=== PATIENT | male | born 1990 | race Caucasian/White ===

== ENCOUNTER → 2020-08-12 11:15 | Outpatient (CLI) | payer BC, SELFPAY ==
--- NOTE | 2020-08-12 11:22 | XR_ITS ---
PROCEDURE: XR ANKLE LT MIN 3V CLINICAL INDICATION: ACUTE LT ANKLE PAIN COMPARISON: No exams were available for comparison FINDINGS: Sclerosis is present in the mid aspect the talus consistent with a bone island. No fracture or dislocation. No lytic changes evident. The mortise is preserved and the talar dome has an unremarkable appearance. IMPRESSION: No acute findings. Dictated by: Tomás Bush MD 08/12/2020 17:20 Tomás Bush MD in [place] 08/12/2020 17:20
== END ==
PROVIDERS: PCP Nurse Practitioner; Visit Provider Nurse Practitioner
DX: M25.572 Pain in left ankle and joints of left foot (principal)
CPT/HCPCS: 73610

== ENCOUNTER → 2020-08-20 10:08 | Outpatient (CLI) | payer BC, SELFPAY ==
[2020-08-20 11:43] LABS: Basophils % 0.3 % (0.1-2.0); Eosinophils # 0.1 K/mm3 (0.0-0.4); Eosinophils % 1.7 % (0.1-12.0); Hematocrit 48.1 % (42.0-52.0); Hemoglobin 16.2 g/dL (14.1-18.0); Lymphocytes # 2.5 K/mm3 (0.7-4.5); Lymphocytes % 34.6 % (10-50); Mean Corpuscular HGB Conc 33.7 g/dL (31.8-35.4); Mean Corpuscular Hemoglobin 30.3 pg (27.0-31.2); Mean Corpuscular Volume 89.9 fl (80-94); Monocytes # 1.1 K/mm3 (0.1-1.0); Monocytes % 15.5 % (1.7-9.3); Neutrophils # 3.4 K/mm3 (1.8-7.8); Neutrophils % 47.9 % (37.0-80.0); Platelet Count 215 K/mm3 (142-424); Red Blood Count 5.36 M/mm3 (4.60-6.20); Red Cell Distribution Width 12.6 % (11.5-17.5); White Blood Count 7.2 K/mm3 (4.8-10.8)
== END ==
PROVIDERS: PCP Family Medicine; Visit Provider Nurse Practitioner
DX: Z03.818 Encounter for observation for suspected exposure to other biological agents ruled out (principal); J06.9 Acute upper respiratory infection, unspecified
CPT/HCPCS: 85025; U0003

== ENCOUNTER → 2021-10-17 12:58 | Outpatient (CLI) | payer BC, SELFPAY ==
[2021-10-17 14:42] LABS: Basophils # 0.1 K/mm3 (0-0.2); Eosinophils # 0.1 K/mm3 (0.0-0.4); Eosinophils % 0.8 % (0.1-12.0); Hematocrit 46.2 % (42.0-52.0); Hemoglobin 14.7 g/dL (14.1-18.0); Lymphocytes # 1.9 K/mm3 (0.7-4.5); Lymphocytes % 29.6 % (10-50); Mean Corpuscular HGB Conc 31.9 g/dL (31.8-35.4); Mean Corpuscular Hemoglobin 29.9 pg (27.0-31.2); Mean Corpuscular Volume 93.8 fl (80-94); Mean Platelet Volume 8.8 fl (7.4-10.4); Monocytes # 1.1 K/mm3 (0.1-1.0); Monocytes % 16.6 % (1.7-9.3); Neutrophils # 3.4 K/mm3 (1.8-7.8); Platelet Count 184 K/mm3 (142-424); Red Blood Count 4.93 M/mm3 (4.60-6.20); Red Cell Distribution Width 12.8 % (11.5-17.5); White Blood Count 6.5 K/mm3 (4.8-10.8)
[2021-10-17 15:03] LABS: Strep Scrn Group A (Rapid) Negative (Negative)
== END ==
PROVIDERS: PCP Family Medicine; Visit Provider Nurse Practitioner
DX: U07.1 COVID-19 (principal)
CPT/HCPCS: 36415; 85025; 87275; 87276; 87430; C9803; U0003; U0005

== ENCOUNTER → 2022-08-10 13:42 | Outpatient (CLI) | payer BC, SELFPAY ==
[2022-08-10 18:26] LABS: Adenovirus,PCR Not Detected (NotDetected); Bordetella Pertussis Not Detected (NotDetected); Chlamydophila Pneumoniae, PCR Not Detected (NotDetected); Coronavirus 19, PCR Not Detected (NotDetected); Coronavirus 229E Not Detected (NotDetected); Coronavirus NL63 Not Detected (NotDetected); Coronavirus OC43 Not Detected (NotDetected); Coronovirus HKU1,PCR Not Detected (NotDetected); Human Metapneumovirus Not Detected (NotDetected); Influenza A, PCR Not Detected (NotDetected); Influenza AH1, 2009 Not Detected (NotDetected); Influenza AH1, PCR Not Detected (NotDetected); Influenza AH3,PCR Not Detected (NotDetected); Influenza B, PCR Not Detected (NotDetected); Mycoplasma Pneumoniae, PCR Not Detected (NotDetected); Parainfluenza 1, PCR Not Detected (NotDetected); Parainfluenza 2, PCR Not Detected (NotDetected); Parainfluenza 3, PCR Not Detected (NotDetected); Parainfluenza 4, PCR Not Detected (NotDetected); Respiratory Syncytial Virus Not Detected (NotDetected); Rhinovirus/Enterovirus Not Detected (NotDetected)
[2022-08-10 18:30] LABS: Basophils # 0.3 K/mm3 (0-0.2); Basophils % 2.7 % (0.1-2.0); Eosinophils # 0.2 K/mm3 (0.0-0.4); Eosinophils % 1.8 % (0.1-12.0); Hemoglobin 14.9 g/dL (14.1-18.0); Lymphocytes # 3.4 K/mm3 (0.7-4.5); Lymphocytes % 36.2 % (10-50); Mean Corpuscular HGB Conc 33.2 g/dL (31.8-35.4); Mean Corpuscular Hemoglobin 30.1 pg (27.0-31.2); Mean Corpuscular Volume 90.7 fl (80-94); Mean Platelet Volume 9.1 fl (7.4-10.4); Monocytes # 1.4 K/mm3 (0.1-1.0); Monocytes % 14.8 % (1.7-9.3); Neutrophils # 4.2 K/mm3 (1.8-7.8); Neutrophils % 44.5 % (37.0-80.0); Platelet Count 264 K/mm3 (142-424); Red Blood Count 4.96 M/mm3 (4.60-6.20); White Blood Count 9.4 K/mm3 (4.8-10.8)
[2022-08-18 10:43] LABS: 1,25 Dihydroxy Vitamin D 39 pg/mL (.); 1,25-Dihydroxy, Vitamin D-2 <10 pg/mL (.); 1,25-Dihydroxy, Vitamin D-3 37 pg/mL (.)
== END ==
PROVIDERS: PCP Nurse Practitioner; Visit Provider Nurse Practitioner
DX: J06.9 Acute upper respiratory infection, unspecified (principal)
CPT/HCPCS: 82652; 85025; 87581; 87632; 87798; C9803; U0003; U0005

== ENCOUNTER → 2023-03-21 11:25 | Outpatient (CLI) | payer BC, SELFPAY ==
[2023-03-21 19:52] LABS: Alanine Aminotransferase 58 U/L (12-78); Albumin Level 4.5 g/dl (3.5-5.0); Albumin/Globulin Ratio 2.1 (1.1-1.8); Alkaline Phosphatase 73 U/L (38-126); Anion Gap 14.2 mEq/L (5-15); Aspartate Amino Transferase 44 U/L (17-59); Bilirubin,Total 0.6 mg/dl (0.2-1.3); Blood Urea Nitrogen 14 mg/dl (9-20); Carbon Dioxide 23 mmol/L (22.0-30.0); Chloride 107 mmol/L (98-107); Chol/HDL Ratio 3.3 (1-3.5); Cholesterol 171 mg/dl (140-200); Estimated Glomerular Filt Rate 112 ml/min (>60); GFR (African American) 136 ML/MIN (>60); Globulin 2.1 g/dL (1.3-3.2); Glucose 83 mg/dl (74-100); HDL Cholesterol 52 mg/dl (40-60); Potassium 4.2 mmoL/L (3.5-5.1); Sodium 140 mmol/L (136-145); Total Protein,Serum 6.6 g/dl (6.3-8.2); Triglycerides 144 mg/dl (30-150); VLDL Cholesterol 29 mg/dL (0-40)
[2023-03-21 20:03] LABS: Direct LDL Cholesterol 87.65 mg/dL (100-129)
[2023-03-21 20:09] LABS: 25-OH Vitamin D, Total 35.7 ng/mL (30-100)
[2023-03-21 20:23] LABS: Thyroid Stimulating Hormone 1.11 uIU/mL (0.465-4.68)
[2023-03-21 20:42] LABS: Vitamin B12 609 pg/mL (239-931)
== END ==
PROVIDERS: PCP Nurse Practitioner; Visit Provider Nurse Practitioner
DX: E55.9 Vitamin D deficiency, unspecified (principal); F41.8 Other specified anxiety disorders; Z13.1 Encounter for screening for diabetes mellitus; Z13.220 Encounter for screening for lipoid disorders; Z79.899 Other long term (current) drug therapy
CPT/HCPCS: 80053; 80061; 82306; 82607; 83036; 84443

== ENCOUNTER 2024-01-09 10:52 | Outpatient (CLI) | payer BC, SELFPAY ==
--- NOTE | 2024-01-09 10:58 | XR_ITS ---
FINAL REPORT CLINICAL HISTORY: cough, bronchitis, wheeze COMPARISON: None FINDINGS: Two views of the chest were obtained. There are posterior spinal rods extending of the upper thoracic into the lumbar spine. The heart size and pulmonary vascularity are within normal limits. The mediastinum is normal. No acute pulmonary abnormality is identified. There is no pneumothorax. The bony thorax is intact. IMPRESSION: No active cardiopulmonary disease. Reviewed, Interpreted and Dictated by Chidi Rojas III, MD Transcribed by Mariah Vaca Authenticated and [facility]
== END 2024-01-09 23:59 ==
LOC: RAD 10:52
PROVIDERS: PCP Nurse Practitioner; Visit Provider Nurse Practitioner
DX: J40 Bronchitis, not specified as acute or chronic (principal); R05.9 Cough, unspecified; R06.2 Wheezing
CPT/HCPCS: 71046

== ENCOUNTER 2025-05-25 12:00 | Outpatient (CLI) | payer BC, SELFPAY ==
--- OUTSIDE RECORDS SUMMARY | 2006-05-23 | XMS_ITS | Encounter Summary ---
Author Organization [facility] Address [address] [place] [address] Care Team Providers Care Butcher Head Name Role Phone Unavailable Primary Care Provider Unavailabl e Encounter Details Date Type Department Care Team (Late st Contact Info) Description 05/23/2006 Hospital Encounter [facility] Division of Orthopaedic Surgery [address] [place] [address] Social History Tobacco Use Types Packs/Day Years Used Date Smoking Tobacco: Never Assessed Sex and Gender Information Value Date Recorded Sex Assigned at Not on file Legal Sex Male 5:19 AM EST Gender Identity Not on file Sexual Orientation Not on file documented as of this encounter Plan of Treatment Not on file documented as of this encounter Visit Diagnoses Not on filedocumented in this encounter
--- OUTSIDE RECORDS SUMMARY | 2006-07-09 | XMS_ITS | Encounter Summary ---
Author Organization [facility] Address [address] [place] [address] Care Team Providers Care Hydraulic Press In Operator Name Role Phone Unavailable Primary Care Provider Unavailabl e Encounter Details Date Type Department Care Team (Late st Contact Info) Description 07/09/2006 Hospital Encounter [facility] Division of Orthopaedics [address] [place] [phone] Social History Tobacco Use Types Packs/Day Years [...]
--- OUTSIDE RECORDS SUMMARY | 2006-12-10 | XMS_ITS | Encounter Summary ---
Author Organization [facility] Address [address] [place] [address] Care Team Providers Care Customer Relations Specialist Name Role Phone Unavailable Primary Care Provider Unavailabl e Encounter Details Date Type Department Care Team (Late st Contact Info) Description 12/10/2006 Hospital Encounter [facility] Division of Orthopaedics [address] [place] [phone] Social History Tobacco Use Types Packs/Day Years Used Date Smoking Tobacco: Never Assessed Sex and Gender Information Value Date Recorded Sex Assigned at Not on file Legal Sex Male 5:19 AM EST Gender Identity Not on file Sexual Orientation Not on file documented as of this encounter Plan of Treatment Not on file documented as of this encounter Procedures Procedure Name Priority Date/Time Associated Diagnosis Comments URIBE SCOLI LIMITED (1-2V) Routine 12/10/2006 3:14 PM EDT documented in this encounter Results * URIBE SCOLI LIMITED (1-2V) (12/10/2006 3:14 PM EDT) Anatomical Region Laterality Modality Computed Radiogr aphy 12/10/2006 2:05 PM EDT Narrative 12/10/2006 3:14 PM EDT Clinical history kyphosis. Impression the severely anteriorly wedged mid thoracic vertebral body yields a scoliosis which changes little if any over bolster Interpreted By: DELROY JONES M.D. Verified By: DELROY JONES M.D. on 12/13/2006 10:00 via Electronic Signature The attending radiologist has reviewed the images and agrees with this report. us Luis Ellis M.D. DIAGNOSTIC IMAGING OR DERABLES Final Result documented in this encounter Visit Diagnoses Not on filedocumented in this encounter
--- OUTSIDE RECORDS SUMMARY | 2007-02-11 | XMS_ITS | Encounter Summary ---
Author Organization [facility] Address [address] [place] [address] Care Team Providers Care Aml Analyst Name Role Phone Unavailable Primary Care Provider Unavailabl e Encounter Details Date Type Department Care Team (Late st Contact Info) Description 02/11/2007 Hospital Encounter [facility] Division of Orthopaedics [address] [place] [phone] Social History Tobacco Use Types Packs/Day [...] Diagnosis Comments URIBE SCOLI LIMITED (1-2V) Routine 02/11/2007 1:22 PM EDT documented in this encounter Results * URIBE SCOLI LIMITED (1-2V) (02/11/2007 1:22 PM EDT) Anatomical Region Laterality Modality Computed Radiogr aphy 02/11/2007 1:22 PM EDT Narrative 02/11/2007 1:22 PM EDT CLINICAL HISTORY: Kyphosis. PROCEDURE COMMENTS: Comparison with 12/10/2006. FINDINGS: The previously seen midthoracic severe compression fracture with mild compression deformities located in the vertebral bodies immediately above and below this compression fracture are similar to the previous study. The thoracic kyphosis is also unchanged. Lateral view lumbar spine remains radiographically normal. IMPRESSION: No change in severity of midthoracic kyphosis caused by compression fractures. Interpreted By: DELGADO M.D. Verified By: DELGADO M.D. on 02/11/2007 14:14 via Electronic Signature The attending radiologist has reviewed the images and agrees with this report. us Luis Ellis M.D. DIAGNOSTIC IMAGING OR DERABLES Final Result documented in this encounter Visit Diagnoses Not on filedocumented in this encounter
--- OUTSIDE RECORDS SUMMARY | 2007-02-11 | XMS_ITS | Encounter Summary ---
Author Organization [facility] Address [address] [place] [address] Care Team Providers Care Fiscal Services Manager Name Role Phone Unavailable Primary Care Provider Unavailabl e Encounter Details Date Type Department Care Team (Late st Contact Info) Description 02/11/[address] [facility] Division of Cardiology [address] [place] [phone] Social History Tobacco Use Types Packs/Day [...]
--- OUTSIDE RECORDS SUMMARY | 2007-02-11 | XMS_ITS | Encounter Summary ---
Author Organization [facility] Address [address] [place] [address] Care Team Providers Care Cotton Sampler Name Role Phone Unavailable Primary Care Provider Unavailabl e Encounter Details Date Type Department Care Team (Late st Contact Info) Description 02/11/2007 Hospital Encounter [facility] Department of Radiology [address] [place] [phone] Social History Tobacco Use Types Packs/Day [...] Procedure Name Priority Date/Time Associated Diagnosis Comments MRI THORACIC SPINE W/O CONTRAST Routine 02/11/2007 8:42 AM EDT MRI LUMBAR SPINE W/O CONTRAST Routine 02/11/2007 8:42 AM EDT MRI CERVICAL SPINE W/O CONTRAST Routine 02/11/2007 8:41 AM EDT documented in this encounter Results * MRI T-SPINE WO CONTRAST (02/11/2007 8:42 AM EDT) Anatomical Region Laterality Modality MRI NEURO Magnetic Resonan ce 02/11/2007 7:55 AM EDT Narrative 02/11/2007 8:42 AM EDT CLINICAL HISTORY: Preoperative evaluation for kyphosis. PROCEDURE COMMENTS: Sagittal T1, FSE T2 and axial FSE T2 images obtained of the cervical, thoracic and lumbosacral spine after coronal localizer. No contrast administered. COMPARISON: Lateral radiographs of the spine December 10, 2006, and outside radiographs dated May 07, 2006.. FINDINGS: Cervical spine: There is susceptibility artifact related to the patient's orthodontics, which distorts the appearance of the prevertebral soft tissues at the upper cervical level and the skull base, and mildly distorts the appearance of the dens. The anterior ring of C-1 is not identifiable secondary to the artifact. The posterior ring appears intact and not significantly hypoplastic. There is mild exaggeration of normal cervical lordosis without subluxation. Vertebral body heights and alignment are otherwise normal. Cerebellar tonsils are in normal position. Cervical cord signal intensity is normal. The intervertebral discs appear normal with the exception of artifact at the C2-C3 level. The neural foramina are patent. Cervical vertebra posterior elements appear intact. No paraspinal masses or intraspinal abnormalities are identified. Thoracic spine: As noted on the prior lateral radiographs, there is significant kyphosis at the mid to lower thoracic level secondary to wedge shaped vertebra at T7, T8 and T9. There are associated endplate irregularities, there is associated disc desiccation with decreased T2 signal at T7-T8 and T8-T9 and there are mild broad-based disc bulges at T7-T8 and T8-T9. The thoracic cord is draped over the level of kyphosis with minimal ventral indentation at the T7-T8 and T8-T9 levels. The T7, T8 and T9 vertebra are normal in signal intensity on T2-weighted images, but there is subtle hyperintense T1 signal within the vertebra on T1-weighted images. There is minimal visualization of the central canal in the thoracic cord from the T5 to the T10 level. The thoracic cord signal intensity otherwise appears normal. No paraspinal masses are identified. Lumbosacral spine: There is mild motion artifact on the axial images. Vertebral body heights, alignment and intrinsic marrow signal intensity are normal. Intervertebral disc spaces appear normal. The conus is located at the upper aspect of L1 and appears normal. No masses are seen within the canal. No paraspinal masses are identified. The kidneys appear grossly normal. IMPRESSION: 1. Mild artifact at the skull base as discussed above related to susceptibility artifact from the patient's orthodontics. Otherwise normal MRI cervical spine. 2. Thoracic kyphosis with broad-based disc bulges mildly indenting the ventral aspect of the cord. 3. Normal MRI of the lumbosacral spine. Interpreted By: CACHORRO SUN M.D. Verified By: CACHORRO SUN M.D. on 02/11/2007 17:23 via Electronic Signature The attending radiologist has reviewed the images and agrees with this report. us Luis Ellis M.D. MR ORDERABLES Final Result * MRI L-SPINE WO CONTRAST (02/11/2007 8:42 AM EDT) Anatomical Region Laterality Modality MRI NEURO Magnetic Resonan ce 02/11/2007 7:55 AM EDT Narrative 02/11/2007 8:42 AM EDT CLINICAL HISTORY: Preoperative evaluation for kyphosis. PROCEDURE COMMENTS: Sagittal T1, FSE T2 and axial FSE T2 images obtained of the cervical, thoracic and lumbosacral spine after coronal localizer. No contrast administered. COMPARISON: Lateral radiographs of the spine December 10, 2006, and outside radiographs dated May 07, 2006.. FINDINGS: Cervical spine: There is susceptibility artifact related to the patient's orthodontics, which distorts the appearance of the prevertebral soft tissues at the upper cervical level and the skull base, and mildly distorts the appearance of the dens. The anterior ring of C-1 is not identifiable secondary to the artifact. The posterior ring appears intact and not significantly hypoplastic. There is mild exaggeration of normal cervical lordosis without subluxation. Vertebral body heights and alignment are otherwise normal. Cerebellar tonsils are in normal position. Cervical cord signal intensity is normal. The intervertebral discs appear normal with the exception of artifact at the C2-C3 level. The neural foramina are patent. Cervical vertebra posterior elements appear intact. No paraspinal masses or intraspinal abnormalities are identified. Thoracic spine: As noted on the prior lateral radiographs, there is significant kyphosis at the mid to lower thoracic level secondary to wedge shaped vertebra at T7, T8 and T9. There are associated endplate irregularities, there is associated disc desiccation with decreased T2 signal at T7-T8 and T8-T9 and there are mild broad-based disc bulges at T7-T8 and T8-T9. The thoracic cord is draped over the level of kyphosis with minimal ventral indentation at the T7-T8 and T8-T9 levels. The T7, T8 and T9 vertebra are normal in signal intensity on T2-weighted images, but there is subtle hyperintense T1 signal within the vertebra on T1-weighted images. There is minimal visualization of the central canal in the thoracic cord from the T5 to the T10 level. The thoracic cord signal intensity otherwise appears normal. No paraspinal masses are identified. Lumbosacral spine: There is mild motion artifact on the axial images. Vertebral body heights, alignment and intrinsic marrow signal intensity are normal. Intervertebral disc spaces appear normal. The conus is located at the upper aspect of L1 and appears normal. No masses are seen within the canal. No paraspinal masses are identified. The kidneys appear grossly normal. IMPRESSION: 1. Mild artifact at the skull base as discussed above related to susceptibility artifact from the patient's orthodontics. Otherwise normal MRI cervical spine. 2. Thoracic kyphosis with broad-based disc bulges mildly indenting the ventral aspect of the cord. 3. Normal MRI of the lumbosacral spine. Interpreted By: CACHORRO SUN M.D. Verified By: CACHORRO SUN M.D. on 02/11/2007 17:23 via Electronic Signature The attending radiologist has reviewed the images and agrees with this report. us Luis Ellis M.D. MR ORDERABLES Final Result * MRI C-SPINE WO CONTRAST (02/11/2007 8:41 AM EDT) Anatomical Region Laterality Modality MRI NEURO Magnetic Resonan ce 02/11/2007 7:00 AM EDT Narrative 02/11/2007 8:41 AM EDT CLINICAL HISTORY: Preoperative evaluation for kyphosis. PROCEDURE COMMENTS: Sagittal T1, FSE T2 and axial FSE T2 images obtained of the cervical, thoracic and lumbosacral spine after coronal localizer. No contrast administered. COMPARISON: Lateral radiographs of the spine December 10, 2006, and outside radiographs dated May 07, 2006.. FINDINGS: Cervical spine: There is susceptibility artifact related to the patient's orthodontics, which distorts the appearance of the prevertebral soft tissues at the upper cervical level and the skull base, and mildly distorts the appearance of the dens. The anterior ring of C-1 is not identifiable secondary to the artifact. The posterior ring appears intact and not significantly hypoplastic. There is mild exaggeration of normal cervical lordosis without subluxation. Vertebral body heights and alignment are otherwise normal. Cerebellar tonsils are in normal position. Cervical cord signal intensity is normal. The intervertebral discs appear normal with the exception of artifact at the C2-C3 level. The neural foramina are patent. Cervical vertebra posterior elements appear intact. No paraspinal masses or intraspinal abnormalities are identified. Thoracic spine: As noted on the prior lateral radiographs, there is significant kyphosis at the mid to lower thoracic level secondary to wedge shaped vertebra at T7, T8 and T9. There are associated endplate irregularities, there is associated disc desiccation with decreased T2 signal at T7-T8 and T8-T9 and there are mild broad-based disc bulges at T7-T8 and T8-T9. The thoracic cord is draped over the level of kyphosis with minimal ventral indentation at the T7-T8 and T8-T9 levels. The T7, T8 and T9 vertebra are normal in signal intensity on T2-weighted images, but there is subtle hyperintense T1 signal within the vertebra on T1-weighted images. There is minimal visualization of the central canal in the thoracic cord from the T5 to the T10 level. The thoracic cord signal intensity otherwise appears normal. No paraspinal masses are identified. Lumbosacral spine: There is mild motion artifact on the axial images. Vertebral body heights, alignment and intrinsic marrow signal intensity are normal. Intervertebral disc spaces appear normal. The conus is located at the upper aspect of L1 and appears normal. No masses are seen within the canal. No paraspinal masses are identified. The kidneys appear grossly normal. IMPRESSION: 1. Mild artifact at the skull base as discussed above related to susceptibility artifact from the patient's orthodontics. Otherwise normal MRI cervical spine. 2. Thoracic kyphosis with broad-based disc bulges mildly indenting the ventral aspect of the cord. 3. Normal MRI of the lumbosacral spine. Interpreted By: CACHORRO SUN M.D. Verified By: CACHORRO SUN M.D. on 02/11/2007 17:23 via Electronic Signature The attending radiologist has reviewed the images and agrees with this report. us Luis Ellis M.D. MR ORDERABLES Final Result documented in this encounter Visit Diagnoses Not on filedocumented in this encounter
--- OUTSIDE RECORDS SUMMARY | 2007-04-15 | XMS_ITS | Encounter Summary ---
Author Organization [facility] Address [address] [place] [address] Care Team Providers Care Physical Plant Employee Name Role Phone Unavailable Primary Care Provider Unavailabl e Encounter Details Date Type Department Care Team (Late st Contact Info) Description 04/15/2007 Hospital Encounter [facility] Division of Orthopaedics [address] [place] [phone] Social History Tobacco Use Types Packs/Day [...] Diagnosis Comments URIBE SCOLI LIMITED (1-2V) Routine 04/15/2007 1:55 PM EDT documented in this encounter Results * URIBE SCOLI LIMITED (1-2V) (04/15/2007 1:55 PM EDT) Anatomical Region Laterality Modality Computed Radiogr aphy 04/15/2007 1:33 PM EDT Narrative 04/15/2007 1:55 PM EDT Final Report Clinical History: Patient with kyphosis. Standing frontal and lateral views of the spine are compared with similar images from 03/01/2007. Spinal fixation rods extend from the upper thoracic to the upper lumbar level as before. The right supraclavicular subcutaneous emphysema has resolved, however there is persistent pleural effusion and/or elevation of the right hemidiaphragm, increased since the prior study. Intervertebral disc material is identified, consistent with the patient's history of kyphosis and posterior fusion. The left lung is clear. Impression: Unchanged spinal fixation hardware for kyphosis. Increasing right pleural effusion which may also be accompanied by hemidiaphragmatic elevation. This finding was called to Rosanna, the nurse working with Dr. Ellis in the orthopedic clinic, immediately following interpretation. Interpreted By: EFRAÍN BILLINGS M.D. Verified By: EFRAÍN BILLINGS M.D. on 04/15/2007 14:02 via Electronic Signature The attending radiologist has reviewed the images and agrees with this report. us Luis Ellis M.D. DIAGNOSTIC IMAGING OR DERABLES Final Result documented in this encounter Visit Diagnoses Not on filedocumented in this encounter
--- OUTSIDE RECORDS SUMMARY | 2007-05-27 | XMS_ITS | Encounter Summary ---
Author Organization [facility] Address [address] [place] [address] Care Team Providers Care Food Stylist Name Role Phone Unavailable Primary Care Provider Unavailabl e Encounter Details Date Type Department Care Team (Late st Contact Info) Description 05/27/2007 Hospital Encounter [facility] Division of Orthopaedics [address] [place] [phone] Social History Tobacco Use Types Packs/Day [...] Diagnosis Comments URIBE SCOLI LIMITED (1-2V) Routine 05/28/2007 8:25 AM EDT documented in this encounter Results * URIBE SCOLI LIMITED (1-2V) (05/28/2007 8:25 AM EDT) Anatomical Region Laterality Modality Computed Radiogr aphy 05/27/2007 2:42 PM EDT Narrative 05/28/2007 8:25 AM EDT Final Report Clinical history spinal fusion. Impression comparison April 17. Impression unchanged instrumentation and s p acers Interpreted By: DELROY JONES M.D. Verified By: DELROY JONES M.D. on 05/28/2007 10:34 via Electronic Signature The attending radiologist has reviewed the images and agrees with this report. us Luis Ellis M.D. DIAGNOSTIC IMAGING OR DERABLES Final Result documented in this encounter Visit Diagnoses Not on filedocumented in this encounter
[2025-05-25 14:47] LABS: Hematocrit 41.1 % (42.0-52.0); Hemoglobin 14.2 g/dL (14.1-18.0); Immature Granulocytes % 0.3 %; Mean Corpuscular HGB Conc 34.5 g/dL (31.8-35.4); Mean Corpuscular Hemoglobin 30.1 pg (27.0-31.2); Mean Corpuscular Volume 87.1 fl (80-94); Nucleated Red Blood Cells % 0 %; Platelet Count 230 K/mm3 (142-424); Red Blood Count 4.72 M/mm3 (4.60-6.20); Red Cell Distribution Width-SD 38.6 fL; White Blood Count 6.4 K/mm3 (4.8-10.8)
[2025-05-25 15:55] LABS: Alanine Aminotransferase 29 U/L (12-78); Albumin Level 4.3 g/dl (3.5-5.0); Albumin/Globulin Ratio 2.3 (1.1-1.8); Alkaline Phosphatase 61 U/L (38-126); Anion Gap 11.5 mEq/L (5-15); Aspartate Amino Transferase 29 U/L (17-59); Bilirubin,Total 0.4 mg/dl (0.2-1.3); Blood Urea Nitrogen 10 mg/dl (9-20); Calcium 9.1 mg/dl (8.4-10.2); Carbon Dioxide 26 mmol/L (22.0-30.0); Chloride 107 mmol/L (98-107); Creatinine,Serum 0.90 mg/dl (0.66-1.25); Estimated Glomerular Filt Rate 97 ml/min (>60); GFR (African American) 117 ML/MIN (>60); Globulin 1.9 g/dL (1.3-3.2); Glucose 72 mg/dl (74-100); Potassium 4.5 mmoL/L (3.5-5.1); Sodium 140 mmol/L (136-145); Total Protein,Serum 6.2 g/dl (6.3-8.2)
[2025-05-25 16:01] LABS: Valproic Acid, (Depakene) 10.7 ug/ml (50-100)
[2025-05-25 16:08] LABS: 25-OH Vitamin D, Total 31.4 ng/mL (30-100)
[2025-05-25 16:27] LABS: Thyroid Stimulating Hormone 1.32 uIU/mL (0.465-4.68)
[2025-05-25 16:46] LABS: Vitamin B12 629 pg/mL (239-931)
--- OUTSIDE RECORDS SUMMARY | 2025-05-27 12:37 | XMS_ITS | Clinical Summary ---
Author Organization [facility] Address [address] [place] [address] Care Team Providers Care Wharfmaster Name Role Phone Elkin Selby M.D. Primary Care Provider + [phone] Source Comments [facility] is fully rolled out with thefollowing exceptions:General Clinical Research [facility] Social History Tobacco Use Types Packs/Day Years Used Date Smoking Tobacco: Never Assessed Sex and Gender Information Value Date Recorded Sex Assigned at Not on file Legal Sex Male 5:19 AM EST Gender Identity Not on file Sexual Orientation Not on file Plan of Treatment Health Maintenance Due Date Last Done Comments MMR IMMUNIZATION (1 of 1 - S tandard series) 01/14/1992 DTAP/Tdap/Td IMMUNIZATION (1 - Tdap) 1998 VARICELLA IMMUNIZATION (1 of 2 - 13+ 2-dose series) 01/14/2004 HEPATITIS B IMMUNIZATION (1 of 3 - 19+ 3-dose series) 2010 HPV IMMUNIZATION (1 - 3-dose SCDM series) 2018 COVID-19 Vaccine (2023-2 5 season) 2024 AMB SEASONAL FLU VACCINE (#1) 08/01/2025 HIB IMMUNIZATION Aged Out No longer e ligible based on patient's age to complete this topic IPV IMMUNIZATION Aged Out No longer e ligible based on patient's age to complete this topic MCV4 IMMUNIZATION Aged Out No longer eligible based on patient's age to complete this topic MENINGOCOCCAL B VACCINE Aged Out No l onger eligible based on patient's age to complete this topic PNEUMOCOCCAL IMMUNIZATION Aged Out No longer eligible based on patient's age to complete this topic Respiratory Syncytial Virus (RSV) <20mo Aged Out No longer eligible b ased on patient's age to complete this topic Care Teams Wharfmaster Relationship Specialty Start Date End Date Elkin Selby M.D. [address] [place] [address] PCP - General 09/16/07
--- OUTSIDE RECORDS SUMMARY | 2025-05-27 12:37 | XMS_ITS | Clinical Summary ---
Author Organization [facility] Address [address] [place] [address] Phone Care Team Providers Care Card Assembler Name Role Phone Vipul Selby MD Primary Care Provider [phone] Allergies Active Allergy Reactions Criticality Noted Date Comments Penicillins 05/24/2013 Medications docosanol (ABREVA) 10 % Top CreamIndications :Herpes labialis 1 application to cold sore up to 5x day. Do not use longer than 10 days. 2 g 12/17/19 17 Active Additional Information Patient not taking.Reason: Other, Reported on 02/07/2017 azithromycin (ZITHROMAX) 250 mg Oral TabletIndication s:Acute bronchitis with bronchospasm Take 2 tablets (500 mg) on Day 1, followed by 1 tablet (250 mg) once daily on Days 2 through 5. 6 Tab 12/12/19 18 Active albuterol sulfate (PROAIR RESPICLICK) 90 mcg/actuation Inhl Aerosol Powdr Breath ActivatedIndicat ions:Acute bronchitis with bronchospasm Inhale 180 mcg into the lungs every 4 hours. 1 Each 12/12/19 18 Active Brompheniramine- Pseudoeph-DM 2-30-10 mg/5 mL Oral SyrupIndications :Acute bronchitis with bronchospasm Take 10 mL by mouth every 4 hours as needed. 240 mL 12/12/19 18 Active hydrocortisone (ANUSOL-HC) 25 mg Rect SuppositoryIndic ations:Internal hemorrhoid Place 1 Suppository rectally every 6 hours as needed for Hemorrhoids. 12 Suppository 1 12/12/19 18 Active Active Problems No known active problems Immunizations Immunization Administration Dates Next Due Tdap 06/15/2016 Surgical History Surgery Date Site/Laterality Comments SPINE SURGERY 10/01/2005 - 09/30/2006 Social History Tobacco Use Types Packs/Day Years Used Date Smoking Tobacco: Former Smokeless Tobacco: Never Sex and Gender Information Value Date Recorded Sex Assigned at Not on file Legal Sex Male 4:35 AM EDT Gender Identity Not on file Sexual Orientation Not on file Obstetrics History Last Filed Vital Signs Vital Sign Reading Time Taken Comments Blood Pressure 118/74 12/11/2017 7:46 PM EDT Pulse 88 12/11/2017 7:46 PM EDT Temperature 36.5 C (97.7 F) 12/11/2017 7:46 PM EDT Respiratory Rate 16 12/11/2017 7:46 PM EDT Oxygen Saturation 97% 12/11/2017 7:46 PM EDT Inhaled Oxygen Concentration - - Weight 98.9 kg (218 lb) 12/11/2017 7:46 PM EDT Height 180.3 cm (5' 11 ) 12/11/2017 7:46 PM EDT Body Mass Index 30.4 12/11/2017 7:46 PM EDT Plan of Treatment Health Maintenance Due Date Last Done Comments Annual Wellness Exam 1994 Hepatitis B Vaccine (1 of 3 - 19+ 3-dose series) 2010 COVID-19 Vaccine (2023-2 5 season) 2024 Influenza Vaccine (#1) 2025 DTaP/TDaP/Td (2 - Td or Tdap) 06/15/2026 06/15/2016 Meningococcal B Vaccine Aged Out No l onger eligible based on patient's age to complete this topic Pneumococcal Vaccine 0-49 Aged Out No longer eligible based on patient's age to complete this topic Insurance [employer] [facility] Care Teams Card Assembler Relationship Specialty Start Date End Date Vipul Selby MD [address] [facility] [address] [place] [id number] PCP - General Psychiatry & Neurology-Neurology 05/24/13
== END 2025-05-25 23:59 | disposition home or self-care (01) ==
LOC: LAB.DROPOF 05-27 12:32
PROVIDERS: PCP Nurse Practitioner; Visit Provider Nurse Practitioner
DX: E55.9 Vitamin D deficiency, unspecified (principal); F41.8 Other specified anxiety disorders; Z79.899 Other long term (current) drug therapy
CPT/HCPCS: 80053; 80164; 82306; 82607; 84443; 85025